=== PATIENT | female | born 1960 | race Caucasian/White ===

== ENCOUNTER 2019-01-17 17:13 | Emergency (ER) | payer BC ==
--- NOTE | 2019-01-17 17:53 | RAD REPORT ---
EXAM DESCRIPTION: CT - Ct Stroke Brain Wo Cont - 01/17/2019 5:43 pm CLINICAL HISTORY: Slurred speech COMPARISON: August 2018 MRI TECHNIQUE: Computed axial tomography of the head was obtained. All CT scans are performed using dose optimization technique as appropriate and may include automated exposure control or mA/KV adjustment according to patient size. FINDINGS: An intracranial bleed is not seen . The ventricles are normal in caliber. No extra-axial fluid collection is noted. Small low-density area within the left thalamus is unchanged compatible with an old lacunar infarctio n. Fluid within the sinuses/ mastoids is not seen. IMPRESSION: No acute intracranial abnormality is seen. If patient's symptoms persist MRI of the bra in would be recommended. Kedar of the emergency room was notified at 549 p.m. November 13, 2018
--- NOTE | 2019-01-17 17:56 | RAD REPORT ---
EXAM DESCRIPTION: Jelly Single View01/17/2019 5:40 pm CLINICAL HISTORY: Chest pain COMPARISON: 2013 FINDINGS: The lungs appear clear of acute infiltrate. The heart is normal size IMPRESSION: No acute abnormalities displayed
[2019-01-17 18:39] LABS: Absolute Lymphocytes (CBC) 2.7 K/uL (0.7-4.9); Absolute Monocytes 0.6 K/uL (0.1-1.3); Absolute Neutrophil 4.7 K/uL (1.8-8.0); Basophils % 0.7 % (0-1.3); Hematocrit 40.5 % (36.0-45.0); Lymphocytes % 32.6 % (15.3-44.8); MPV 10.2 fL (7.6-11.3); Monocytes % 7.3 % (3.3-12.3); RBC Red Blood Cell Count 4.58 M/uL (3.86-4.86)
[2019-01-17 18:41] LABS: Protime INR 1.08
[2019-01-17 18:44] LABS: Potassium 4.7 mmol/L (3.5-5.1)
[2019-01-17 19:10] LABS: Platelet Estimate ADEQ
[2019-01-17 19:11] LABS: Blood Morphology Comment NOT SEEN (NOT SEEN); Urine White Blood Cell Casts OK
--- NOTE | 2019-01-17 20:13 | EDPHYS ---
Physician Documentation [facility] Name: Jaci Colorado Age: 58 yrs Sex: Female : 1960 Arrival Date: 01/17/2019 Time: 17:16 Bed 20 Private MD: ED Physician Rogerio Evans HPI: 01/17 17:36 This 58 yrs old Female presents to ER via EMS with complaints of Slurred pm1 Speech. 17:36 The patient presents to the emergency department with a speech or higher order brain pm1 function problem, expressive aphasia for 1.5 minutes that was witnessed by . Onset: The symptoms/episode began/occurred today, at 16:20. Context: occurred at home, occurred while the patient was talking to her son by face time. Associated signs and symptoms: Pertinent negatives: fever, headache, paresthesias, blurred vision, double vision, visual field changes, loss of vision, weakness. Severity of symptoms: in the emergency department the symptoms have resolved Pain is currently a 0 / 10. Patient's baseline: Neuro: alert and fully oriented, Motor: no deficits, Ambulation: walks without assistance, Speech: normal, The patient has a previous history of CVA, June 2018. Right sided residual numbness and tingling to right hand and right foot. Current symptoms: Currently, the patient is not experiencing any symptoms, the patient feels back to baseline. The patient has been recently seen by a physician: Sandeep and PCP for preoperative clearance for right knee surgery tomorrow. Patient was talking to her son on her phone by face time. Her was right next to her talking with their son also. He witnessed the patient had speech sounds that did not make any sense. Patient was aware this was occurring and could not make the right words. She felt that it lasted for 5 minutes but her who witnessed the whole event said it only lasted for 1.5 minutes before it resolved completely. Patient has a surgery tomorrow for her left knee replacement and has recently seen her hoisting engine operator and PCP. she has been cleared for surgery and has been holding her aspirin for the past 1 week. Historical: - Allergies: 17:20 No Known Allergies; bp - PMHx: 17:20 CVA; Diabetes - NIDDM; bp - Immunization history:: Adult Immunizations up to date. - Social history:: Smoking status: Patient/guardian denies using tobacco. - Ebola Screening: : No symptoms or risks identified at this time. ROS: 17:36 Constitutional: Negative for fever, chills, and weight loss, Eyes: Negative for injury, pm1 pain, redness, and discharge, ENT: Negative for injury, pain, and discharge, Neck: Negative for injury, pain, and swelling, Cardiovascular: Negative for chest pain, palpitations, and edema, Respiratory: Negative for shortness of breath, cough, wheezing, and pleuritic chest pain, Abdomen/GI: Negative for abdominal pain, nausea, vomiting, diarrhea, and constipation, Back: Negative for injury and pain, : Negative for injury, bleeding, discharge, and swelling, MS/Extremity: Negative for injury and deformity, Skin: Negative for injury, rash, and discoloration. 17:36 Neuro: Positive for expressive aphasia, Negative for altered mental status, dizziness, headache, seizure activity, new numbness and tingling from baseline. Exam: 17:36 Constitutional: This is a well developed, well nourished patient who is awake, alert, pm1 and in no acute distress. Head/Face: Normocephalic, atraumatic. Eyes: Pupils equal round and reactive to light, extra-ocular motions intact. Lids and lashes normal. Conjunctiva and sclera are non-icteric and not injected. Cornea within normal limits. Periorbital areas with no swelling, redness, or edema. ENT: Nares patent. No nasal discharge, no septal abnormalities noted. Tympanic membranes are normal and external auditory canals are clear. Oropharynx with no redness, swelling, or masses, exudates, or evidence of obstruction, uvula midline. Mucous membranes moist. Neck: Trachea midline, no thyromegaly or masses palpated, and no cervical lymphadenopathy. Supple, full range of motion without nuchal rigidity, or vertebral point tenderness. No Meningismus. Chest/axilla: Normal chest wall appearance and motion. Nontender with no deformity. No lesions are appreciated. Cardiovascular: Regular rate and rhythm with a normal S1 and S2. No gallops, murmurs, or rubs. Normal PMI, no JVD. No pulse deficits. Respiratory: Lungs have equal breath sounds bilaterally, clear to auscultation and percussion. No rales, rhonchi or wheezes noted. No increased work of breathing, no retractions or nasal flaring. Abdomen/GI: Soft, non-tender, with normal bowel sounds. No distension or tympany. No guarding or rebound. No evidence of tenderness throughout. Back: No spinal tenderness. No costovertebral tenderness. Full range of motion. Skin: Warm, dry with normal turgor. Normal color with no rashes, no lesions, and no evidence of cellulitis. MS/ Extremity: Pulses equal, no cyanosis. Neurovascular intact. Full, normal range of motion. 17:36 Neuro: Orientation: is normal, Mentation: is normal, Cranial nerves: CN II- XII are normal as tested, Cerebellar function: normal finger to nose testing, heel to harris testing is normal, Motor: moves all fours, Sensation: no obvious gross deficits, seizure activity, is not displayed by the patient. Vital Signs: 17:20 BP 167 / 82; Pulse 57; Resp 16; Temp 98; Pulse Ox 99% ; Weight 90.72 kg; Height 5 ft. 7 bp in. (170.18 cm); 18:06 BP 146 / 78; Pulse 58; Resp 14; Pulse Ox 99% ; bp 18:47 BP 135 / 68; Pulse 57; Resp 15; Temp 98(TE); Pulse Ox 97% on R/A; mh5 19:15 BP 133 / 68; Pulse 57; Resp 17 S; Temp 98.6(O); Pulse Ox 97% on R/A; ca1 20:00 BP 159 / 73; Pulse 56; Resp 17 S; Pulse Ox 98% on R/A; cc3 21:11 BP 130 / 43; Pulse 58; Resp 19 S; Pulse Ox 100% on R/A; cc3 22:10 BP 135 / 67; Pulse 59; Resp 17 S; Pulse Ox 100% on R/A; cc3 17:20 Body Mass Index 31.32 (90.72 kg, 170.18 cm) bp NIH Stroke Scale Scores: 17:36 NIHSS Score: 0 pm1 MDM: 17:25 Patient medically screened. pm1 17:48 ED course: Negative CT head per radiologist. pm1 19:33 Physician consultation: Dominick Larson MD No neurologist clinical education manager. Attempted multiple pm1 times to contact patient's neurologist, Dr. Sherman. No return callback. Consulted with ER attending, Neo, and recommended to transfer patient since neurology is not available and giving patient Aspirin and Plavix in ER. . 19:41 Counseling: I had a detailed discussion with the patient and/or guardian regarding: the pm1 need to transfer to another facility, Discussed ER attending recommendations with patient and family. She would like to try her neurologist if available. Will try and if he is not available or does not answer will transfer patient. Patient and family is fine with plan. 20:10 Counseling: I had a detailed discussion with the patient and/or guardian regarding: the pm1 historical points, exam findings, and any diagnostic results supporting the discharge/admit diagnosis, lab results, radiology results, the need to transfer to another facility, for higher level of care, [facility] does not immediately have the required specialist. 20:20 Data reviewed: vital signs. Data interpreted: Pulse oximetry: on room air is 97 %. pm1 Interpretation: normal. 20:20 Physician consultation: Neurologist Flavia was called at 20:15, was contacted at 20:18, pm1 regarding regarding transfer, patient's condition, and will see patient. 20:36 Physician consultation: Hospitalist Jose regarding regarding transfer, patient's pm1 condition, and will see patient would like patient to receive a dosage of her home medication statin in ER. 01/17 17:26 Order name: Basic Metabolic Panel pm1 01/17 17:26 Order name: CBC with Diff; Complete Time: 20:16 pm1 01/17 17:26 Order name: Protime (+inr); Complete Time: 18:46 pm1 01/17 17:26 Order name: Ptt, Activated; Complete Time: 18:46 pm1 01/17 17:27 Order name: Basic Metabolic Panel; Complete Time: 18:46 EDMS 01/17 19:13 Order name: CBC Smear Scan; Complete Time: 20:16 EDMS 01/17 17:26 Order name: Stroke CXR 1 View; Complete Time: 17:57 pm1 01/17 17:26 Order name: EKG; Complete Time: 17:27 pm1 01/17 17:39 Order name: Ct Stroke Brain Wo Cont; Complete Time: 17:57 EDMS 01/17 20:30 Order name: Glucose, Ancillary Testing; Complete Time: 20:34 EDMS 01/17 17:26 Order name: Accucheck; Complete Time: 18:07 pm1 01/17 17:26 Order name: Cardiac monitoring; Complete Time: 18:07 pm1 01/17 17:26 Order name: EKG - Nurse/Tech; Complete Time: 18:07 pm1 01/17 17:26 Order name: IV Saline Lock; Complete Time: 18:07 pm1 01/17 17:26 Order name: Labs collected and sent; Complete Time: 18:07 pm1 01/17 17:26 Order name: NPO; Complete Time: 17:30 pm1 01/17 17:26 Order name: O2 Per Protocol; Complete Time: 17:30 pm1 01/17 17:26 Order name: O2 Sat Monitoring; Complete Time: 17:30 pm1 01/17 17:26 Order name: Stroke Swallow Screen; Complete Time: 17:30 pm1 EC:54 Rate is 56 beats/min. Rhythm is regular, Sinus bradycardia with PACs. No Q waves. T pm1 waves are Normal. No ST changes noted. Clinical impression: Sinus bradycardia. Administered Medications: 20:00 Drug: Aspirin 325 mg Route: PO; cc3 20:10 Follow up: Response: No adverse reaction cc3 20:00 Drug: PlaVIX 75 mg Route: PO; cc3 20:05 Follow up: Response: No adverse reaction cc3 21:54 Drug: lovastatin 40 mg {Note: medication not in Pyxis so patient took her own home cc3 medication.} Route: PO; 21:55 Follow up: Response: No adverse reaction cc3 Point of Care Testing: Blood Glucose: 18:28 Blood Glucose: 94 mg/dL; mh5 Ranges: Critical Glucose Levels:Adult <50 mg/dl or >400 mg/dl <40 mg/dl or >180 mg/dl Disposition: 01/17/19 20:11 Transfer ordered to [facility]. Diagnosis is Transient cerebral ischemic attack, unspecified. - Reason for transfer: Higher level of care. - Accepting physician is [facility] Neurologist. - Condition is Stable. - Problem is new. - Symptoms are resolved. NIH Stroke Scale - NIH Stroke Score Date: 01/17/2019 Time: 17:36 Total Score = 0 1a. Level of Consciousness (LOC) - 0(Alert) 1b. Level of Consciousness (LOC) (Year \T\ Age) - 0(Both) 1c. LOC Commands (Open \T\ Closes Eyes/Application Support Intern) - 0(Both) 2. Best Gaze (Lateral Gaze Paresis) - 0(Normal) 3. Visual Field Loss - 0(No visual loss) 4. Facial Palsy - 0(Normal) 5a. Left Arm: Motor (10-second hold) - 0(No drift) 5b. Right Arm: Motor (10-second hold) - 0(No drift) 6a. Left Leg: Motor (5-second hold - always test supine) - 0(No drift) 6b. Right Leg: Motor (5-second hold - always test supine) - 0(No drift) 7. Limb Ataxia (finger/nose \T\ heel/harris - test with eyes open) - 0(Absent) 8. Sensory Loss (pinprick arms/legs/face) - 0(Normal) 9. Best Language: Aphasia (description/naming/reading) - 0(No aphasia) 10. Dysarthria (speech clarity - read or repeat words) - 0(Normal) 11. Extinction and Inattention (visual/tactile/auditory/spatial/personal) - 0(No abnormality) Initials: pm1 Addendum: 01/19/2019 02:07 Co-signature as Attending Physician, Rogerio Evans MD. Signatures: Dispatcher [employer] [facility] Brady Steel, PINKING MACHINE OPERATOR PINKING MACHINE OPERATOR pm1 Rogerio Evans MD MD Don Caballero, RN RN Anne Weiss cc3 Corrections: (The following items were deleted from the chart) 01/17 17:38 17:27 CT-STROKE BRAIN W/O CONTRAST+CT.RAD.BRZ ordered. [facility] 22:20 20:11 01/17/2019 20:11 Transfer ordered to [facility]. cc3 Diagnosis is Transient cerebral ischemic attack, unspecified. Reason for transfer: Higher level of care. Accepting physician is [facility] Neurologist. Condition is Stable. Problem is new. Symptoms are resolved. pm1
--- NOTE | 2019-01-17 20:13 | ER ---
Nurse's Notes [facility] Name: Jaci Colorado Age: 58 yrs Sex: Female : 1960 Arrival Date: 01/17/2019 Time: 17:16 Bed 20 Private MD: Diagnosis: Transient cerebral ischemic attack, unspecified Presentation: 01/17 17:18 Presenting complaint: EMS states: 5 MINUTE EPISODE OF SLURRED SPEECH AT 1620. bp Transition of care: patient was not received from another setting of care. Onset of symptoms was January 17, 2019 at 16:20. Risk Assessment: Do you want to hurt yourself or someone else? Patient reports no desire to harm self or others. Initial Sepsis Screen: Does the patient meet any 2 criteria? No. Patient's initial sepsis screen is negative. Does the patient have a suspected source of infection? No. Patient's initial sepsis screen is negative. Care prior to arrival: IV initiated. 20 GA, in the right antecubital area, Glucose check: 97. 17:18 Method Of Arrival: EMS: [facility] bp 17:18 Acuity: MARICARMEN 4 bp 17:30 Acuity: MARICARMEN 2 iw Triage Assessment: 17:20 General: Appears in no apparent distress. comfortable, obese, Behavior is cooperative, bp appropriate for age, anxious. Pain: Denies pain. EENT: No deficits noted. Neuro: Level of Consciousness is awake, alert, obeys commands, Oriented to Appropriate for age Director Of Strategic Sourcing are equal bilaterally Moves all extremities. Full function Speech is normal, Facial symmetry appears normal. Cardiovascular: No deficits noted. Respiratory: Airway is patent Respiratory effort is even, unlabored, Respiratory pattern is regular, symmetrical. GI: No signs and/or symptoms were reported involving the gastrointestinal system. : No signs and/or symptoms were reported regarding the genitourinary system. Derm: No deficits noted. Musculoskeletal: Circulation, motion, and sensation intact. Range of motion: intact in all extremities. Historical: - Allergies: 17:20 No Known Allergies; bp - PMHx: 17:20 CVA; Diabetes - NIDDM; bp - Immunization history:: Adult Immunizations up to date. - Social history:: Smoking status: Patient/guardian denies using tobacco. - Ebola Screening: : No symptoms or risks identified at this time. Screenin:23 Abuse screen: Denies threats or abuse. Denies injuries from another. Nutritional bp screening: No deficits noted. Tuberculosis screening: No symptoms or risk factors identified. Fall Risk None identified. Assessment: 19:15 Reassessment: Patient appears in no apparent distress at this time. Patient and/or cc3 family updated on plan of care and expected duration. Pain level reassessed. Patient is alert, oriented x 3, equal unlabored respirations, skin warm/dry/pink. Received this female patient from morning shift RN Don as a case of slurred speech, currently patient is not having slurred speech nor any stroke symptoms; with IV cannula gauge 20 at the left ACV saline locked. Regarding the ordered Aspirin 325 mg oral, IVY Abreu said he'll confirm first with the patient's doctor if still to be given because patient is scheduled for knee replacement surgery tomorrow and she said she was told to be off Aspirin for a week. Patient denies pain at this time. General: Appears in no apparent distress. comfortable, Behavior is calm, cooperative, appropriate for age. Pain: Denies pain. Neuro: Level of Consciousness is awake, alert, obeys commands, Oriented to person, place, time, situation, Appropriate for age Director Of Strategic Sourcing are equal bilaterally Moves all extremities. Speech is normal, Facial symmetry appears normal, Pupils are PERRLA, Intact. Cardiovascular: Denies chest pain, Patient's skin is warm and dry. Respiratory: Airway is patent Respiratory effort is even, unlabored, Respiratory pattern is regular, symmetrical. GI: Abdomen is round non-distended. : No signs and/or symptoms were reported regarding the genitourinary system. EENT: No signs and/or symptoms were reported regarding the EENT system. Derm: Skin is intact, is healthy with good turgor, Skin is pink, warm \T\ dry. normal. Musculoskeletal: Circulation, motion, and sensation intact. Range of motion: intact in all extremities. 20:00 Reassessment: Patient appears in no apparent distress at this time. Patient and/or cc3 family updated on plan of care and expected duration. Pain level reassessed. Patient is alert, oriented x 3, equal unlabored respirations, skin warm/dry/pink. IVY Abreu said the Aspirin and Plavix can be given. 21:45 Reassessment: Patient appears in no apparent distress at this time. Patient and/or cc3 family updated on plan of care and expected duration. Pain level reassessed. Patient is alert, oriented x 3, equal unlabored respirations, skin warm/dry/pink. Patient for transfer to [facility], called for report but was told to call back after 15 minutes. 22:00 Reassessment: Patient appears in no apparent distress at this time. Patient and/or cc3 family updated on plan of care and expected duration. Pain level reassessed. Patient is alert, oriented x 3, equal unlabored respirations, skin warm/dry/pink. Called again [facility] but was told by the pole peeling machine operator helper Marifer that the nurse who will receive is still with another patient and that they will call me once they're ready to receive. Charge nurse Joan informed. 22:15 Reassessment: Report called and handed over to SHELL Rueda for continuity of care. cc3 Transfer form completed, awaiting EMS. 22:20 Reassessment: Patient appears in no apparent distress at this time. Patient and/or cc3 family updated on plan of care and expected duration. Pain level reassessed. Patient is alert, oriented x 3, equal unlabored respirations, skin warm/dry/pink. [facility] came for patient transport. Patient left ER for transfer to [facility] vitally stable by EMS stretcher. Patient denies pain at this time. Patient states feeling better. Patient states symptoms have improved. Vital Signs: 17:20 BP 167 / 82; Pulse 57; Resp 16; Temp 98; Pulse Ox 99% ; Weight 90.72 kg; Height 5 ft. 7 bp in. (170.18 cm); 18:06 BP 146 / 78; Pulse 58; Resp 14; Pulse Ox 99% ; bp 18:47 BP 135 / 68; Pulse 57; Resp 15; Temp 98(TE); Pulse Ox 97% on R/A; mh5 19:15 BP 133 / 68; Pulse 57; Resp 17 S; Temp 98.6(O); Pulse Ox 97% on R/A; ca1 20:00 BP 159 / 73; Pulse 56; Resp 17 S; Pulse Ox 98% on R/A; cc3 21:11 BP 130 / 43; Pulse 58; Resp 19 S; Pulse Ox 100% on R/A; cc3 22:10 BP 135 / 67; Pulse 59; Resp 17 S; Pulse Ox 100% on R/A; cc3 17:20 Body Mass Index 31.32 (90.72 kg, 170.18 cm) bp NIH Stroke Scale Scores: 17:36 NIHSS Score: 0 pm1 ED Course: 17:16 Patient arrived in ED. bp 17:17 Brady Steel, IVY is PHCP. pm1 17:17 Rogerio Evans MD is Attending Physician. pm1 17:19 Triage completed. bp 17:20 Arm band placed on. bp 17:22 Maintain EMS IV. Dressing intact. Good blood return noted. Site clean \T\ dry. Gauge \T\ bp site: 20 GAUGE R AC. 17:23 Patient has correct armband on for positive identification. Bed in low position. Call bp light in reach. Side rails up X2. Adult w/ patient. 17:27 Don Caballero, RN is Primary Nurse. bp 17:37 Stroke CXR 1 View In Process Unspecified. EDMS 17:44 Ct Stroke Brain Wo Cont In Process Unspecified. EDMS 17:45 CT completed. Patient tolerated procedure well. Patient moved back from CT. kw1 18:27 Initial lab(s) drawn, by ia, sent to lab. Inserted saline lock: 20 gauge in left mh5 antecubital area, using aseptic technique. Blood collected. IV discontinued, Pressure dressing applied. 18:29 Inserted saline lock: 20 gauge in left antecubital area, using aseptic technique. Blood mh5 collected. 18:29 Basic Metabolic Panel Sent. mh5 18:29 CBC with Diff Sent. mh5 18:29 Protime (+inr) Sent. mh5 18:30 Ptt, Activated Sent. mh5 18:43 EKG done, by ED staff, reviewed by Brady Steel LACING OPERATOR. mh5 22:20 No provider procedures requiring assistance completed. Patient transferred, IV remains cc3 in place. Administered Medications: 20:00 Drug: Aspirin 325 mg Route: PO; cc3 20:10 Follow up: Response: No adverse reaction cc3 20:00 Drug: PlaVIX 75 mg Route: PO; cc3 20:05 Follow up: Response: No adverse reaction cc3 21:54 Drug: lovastatin 40 mg {Note: medication not in Pyxis so patient took her own home cc3 medication.} Route: PO; 21:55 Follow up: Response: No adverse reaction cc3 Point of Care Testing: Blood Glucose: 18:28 Blood Glucose: 94 mg/dL; mh5 Ranges: Outcome: 20:11 ER care complete, transfer ordered by . pm1 22:20 Patient left the ED. cc3 22:20 Transferred by ground EMS to [facility], Transfer form completed. cc3 22:20 Condition: stable 22:20 Instructed on the need for transfer, Demonstrated understanding of instructions. NIH Stroke Scale - NIH Stroke Score Date: 01/17/2019 Time: 17:36 Total Score = 0 1a. Level of Consciousness (LOC) - 0(Alert) 1b. Level of Consciousness (LOC) (Year \T\ Age) - 0(Both) 1c. LOC Commands (Open \T\ Closes Eyes/Marketing Database Analyst) - 0(Both) 2. Best Gaze (Lateral Gaze Paresis) - 0(Normal) 3. Visual Field Loss - 0(No visual loss) 4. Facial Palsy - 0(Normal) 5a. Left Arm: Motor (10-second hold) - 0(No drift) 5b. Right Arm: Motor (10-second hold) - 0(No drift) 6a. Left Leg: Motor (5-second hold - always test supine) - 0(No drift) 6b. Right Leg: Motor (5-second hold - always test supine) - 0(No drift) 7. Limb Ataxia (finger/nose \T\ heel/harris - test with eyes open) - 0(Absent) 8. Sensory Loss (pinprick arms/legs/face) - 0(Normal) 9. Best Language: Aphasia (description/naming/reading) - 0(No aphasia) 10. Dysarthria (speech clarity - read or repeat words) - 0(Normal) 11. Extinction and Inattention (visual/tactile/auditory/spatial/personal) - 0(No abnormality) Initials: pm1 Signatures: Dispatcher [employer] Brenda Ren RN RN iw Marinas, Patrick, NP LACING OPERATOR pm1 Renea Jennings 5 Don Caballero RN RN bp Wilhelm, Kimberly kw1 Anne Ulloa cc3 Aida Burgess RN RN ca1 Corrections: (The following items were deleted from the chart) 17:38 17:[address]-STROKE BRAIN W/O CONTRAST+CT.RAD.BRZ. EDMS EDMS 01/18 04:15 01/17 21:45 Reassessment: Patient for transfer to [facility], called for cc3 report but was told to call back after 15 minutes. cc3
[2019-01-17] MEDS ORDERED: ASPIRIN EC 325 MG TABLET PO ONE (20:15)
[2019-01-17] MEDS ORDERED: CLOPIDOGREL 75 MG TABLET ONE (20:15)
[2019-01-17 22:42] VITALS: TEMP 98.6
[2019-01-17 22:44] VITALS: BP 130/43; O2SAT 100
--- NOTE | 2019-01-18 09:09 | EKG ---
Test Date: 2019-01-17 Test Time: 17:52:45 Rehabilitator: EUSEBIA MEASUREMENT RESULTS: Intervals: Rate: 56 NH: 128 QRSD: 78 QT: 416 QTc: 401 [place]: P: 55 NH: 128 QRS: 35 T: 53 INTERPRETIVE STATEMENTS: Sinus bradycardia with premature atrial complexes Otherwise normal ECG Compared to ECG 02/13/2013 20:33:53 Atrial premature complex(es) now present Sinus rhythm no longer present Electronically Signed On 01-18-19 09:08:28 CDT by Brown Hopkins
== END 2019-01-17 22:20 | disposition short-term general hospital (02) ==
LOC: ER 17:13
DX: G45.9 Transient cerebral ischemic attack, unspecified (principal); Z86.73 Personal history of transient ischemic attack (TIA), and cerebral infarction without residual deficits
CPT/HCPCS: 36415; 70450; 71045; 80048; 82962; 85025; 85610; 85730; 93005; 99285

== ENCOUNTER 2019-04-28 08:14 | Emergency (ER) | payer BC ==
[2019-04-28] MEDS ORDERED: ONDANSETRON 4 MG/2 ML VIAL ONE (08:20)
[2019-04-28] MEDS ORDERED: MORPHINE 2 MG/ML SYR ONE ×2 (08:20→08:52)
--- NOTE | 2019-04-28 08:31 | RAD REPORT ---
EXAM DESCRIPTION: RAD - Chest Single View - 04/28/2019 8:24 am CLINICAL HISTORY: SOB Chest pain. COMPARISON: Chest Single View dated 01/17/2019; CHEST PA AND LAT 2 VIEW dated 06/22/2014; CHEST SINGL E VIEW dated 02/13/2013; CHEST SINGLE VIEW dated 05/10/2009 FINDINGS: Portable technique limits examination quality. The lungs are grossly clear. The heart is normal in size. No displaced fractures. IMPRESSION: No acute intrathoracic process suspected.
[2019-04-28 08:49] LABS: Absolute Lymphocytes (CBC) 1.8 K/uL (0.7-4.9); Basophils % 0.5 % (0-1.3); Lymphocytes % 23.6 % (15.3-44.8); MPV 9.3 fL (7.6-11.3); RBC Red Blood Cell Count 3.64 M/uL (3.86-4.86)
[2019-04-28 08:51] LABS: Protime INR 1.13
[2019-04-28 09:12] LABS: ALT/SGPT 25 U/L (12-78); AST/SGOT 25 U/L (15-37); Albumin 3.3 g/dL (3.4-5.0); Alkaline Phosphatase 79 U/L (45-117); BUN Blood Urea Nitrogen 18 mg/dL (7-18); Bicarbonate 26 mmol/L (21-32); Bilirubin Direct 0.4 mg/dL (0-0.2); Bilirubin Total 1.3 mg/dL (0.2-1.0); Glucose Level 200 mg/dL (74-106); Lipase 139 U/L (73-393); Magnesium 1.6 mg/dL (1.8-2.4); NT PRO-BNP 426 pg/mL (<125); Potassium 3.4 mmol/L (3.5-5.1); Protein, Total 7.1 g/dL (6.4-8.2); Sodium Level 138 mmol/L (136-145); Troponin (Emerg Dept Use Only) < 0.02 ng/mL (0.0-0.045)
--- NOTE | 2019-04-28 09:21 | EKG ---
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
--- NOTE | 2019-04-28 10:08 | RAD REPORT ---
EXAM DESCRIPTION: CTAbdomen Pelvis W Contrast - 04/28/2019 9:47 am CLINICAL HISTORY: Abdominal pain. lower abdomen pain COMPARISON: CT ABD PELVIS W CONTRAST dated 02/13/2013; CT ABD PELVIS W CONTRAST dated 01/20/2008 TECHNIQUE: Biphasic CT imaging of the abdomen and pelvis was performed with 100 ml non-ionic IV cont rast. All CT scans are performed using dose optimization technique as appropriate and may include automated exposure control or mA/KV adjustment according to patient size. FINDINGS: The lung bases are clear.Cholecystectomy. The liver, spleen, pancreas, adrenal glands and kidneys are within normal limits. Bilateral renal cys ts are present. No bowel obstruction, free air, free fluid or abscess. Sigmoid diverticulosis coli is present without diverticulitis. The appendix is not identified as a discrete structure, however, no secondary findin gs of appendicitis are identified. No evidence of significant lymphadenopathy. Lumbar orthopedic hardware is in place. IMPRESSION: No acute intra-abdominal or pelvic finding. Sigmoid diverticulosis coli without diverticulitis.
[2019-04-28 10:47] LABS: Urine Blood NEGATIVE (NEG); Urine Glucose 2+ (NEG); Urine Protein NEGATIVE (NEG); Urine Specific Gravity 1.015 (1.005-1.030); Urine pH 8.5 (5.0-7.0)
[2019-04-28 10:53] LABS: Urine Bacteria <20 /HPF (<20); Urine RBC <5 /HPF (NONE SEEN)
[2019-04-28 10:54] LABS: Urine Culture Reflex Order REFLEXED
[2019-04-28] MEDS ORDERED: PHENAZOPYRIDINE 100MG TAB PO ONE (11:10)
[2019-04-28] MEDS ORDERED: LORazepam 2 MG/ML VIAL ONE (11:10)
[2019-04-28] MEDS ORDERED: CEFTRIAXONE/SWI 1gm 1 GM/10 ML SYR ONE (11:11)
[2019-04-28 11:41] LABS: Blood Morphology Comment NOT SEEN (NOT SEEN); Platelet Estimate ADEQ
--- NOTE | 2019-04-28 11:49 | EDPHYS ---
Physician Documentation [facility] Name: Jaci Colorado Age: 58 yrs Sex: Female : 1960 Arrival Date: 04/28/2019 Time: 08:10 Bed 7 Private MD: ED Physician Dexter Stephen HPI: 04/28 08:20 This 58 yrs old Female presents to ER via EMS with complaints of Abdominal cp Pain. 08:20 The patient presents with abdominal pain in the lower abdomen. cp 08:20 Onset: The symptoms/episode began/occurred yesterday. cp 08:20 The symptoms do not radiate. Associated signs and symptoms: Pertinent positives: cp dysuria, shortness of breath, Pertinent negatives: nausea and vomiting, blood in stools, chest pain, constipation, diarrhea, fever. The symptoms are described as waxing/waning. Modifying factors: the symptoms are aggravated by movement. Historical: - Allergies: 08:15 No Known Allergies; aa5 - Home Meds: 09:20 aspirin 81 mg Oral chew 1 tab twice a day [Active]; atenolol 100 mg Oral tab 1 tab once aa5 daily [Active]; atorvastatin 40 mg oral tab 1 tab once daily [Active]; escitalopram oxalate 20 mg oral tab [Active]; esomeprazole magnesium 40 mg oral cpDR 1 cap once daily [Active]; gabapentin 300 mg oral cap at bedtime [Active]; hydrocodone-acetaminophen 10-325 mg Oral tab every 6 hours for Pain [Active]; losartan-hydrochlorothiazide 100-25 mg oral tab once daily [Active]; meloxicam 15 mg oral tab 1 tab once daily [Active]; metformin 1,000 mg Oral tab 1 tab 2 times per day [Active]; methocarbamol 500 mg Oral tab every 6 hours as needed [Active]; mirtazapine 15 mg Oral tab 1 tab once daily [Active]; tramadol 50 mg Oral tab 1 tab every 6 hours [Active]; buspirone 7.5 mg Oral tab for Generalized Anxiety Disorder [Active]; - PMHx: 08:15 Hypertension; Diabetes; TIA; Anxiety; aa5 - Immunization history:: Adult Immunizations unknown. - Social history:: Smoking status: Patient/guardian denies using tobacco. - Ebola Screening: : No symptoms or risks identified at this time. ROS: 08:45 Eyes: Negative for injury, pain, redness, and discharge. cp 08:45 Constitutional: Positive for poor PO intake, Negative for body aches, chills, fever, poor PO intake. 08:45 ENT: Negative for drainage from ear(s), ear pain, sore throat, difficulty swallowing, difficulty handling secretions. 08:45 Cardiovascular: Negative for palpitations. 08:45 Respiratory: Negative for cough, shortness of breath, wheezing. 08:45 Abdomen/GI: Positive for abdominal pain, nausea, of the , Negative for diarrhea, constipation, anorexia, black/tarry stool, rectal bleeding. 08:45 Back: Negative for injury or acute deformity. 08:45 All other systems are negative. Exam: 08:35 ECG was reviewed by the Attending Physician. cp 08:40 Constitutional: The patient appears in no acute distress, alert, awake, non-toxic, well cp developed, well nourished, uncomfortable. 08:40 Head/Face: Normocephalic, atraumatic. cp 08:40 Eyes: Periorbital structures: appear normal, Pupils: equal, round, and reactive to light and accomodation, Extraocular movements: intact throughout, Conjunctiva: normal, no exudate, no injection, Sclera: no appreciated abnormality, Lids and lashes: appear normal, bilaterally. 08:40 ENT: External ear(s): are unremarkable, Nose: is normal, Mouth: Lips: moist, Oral mucosa: pink and intact, Posterior pharynx: is normal, airway is patent, no erythema, no exudate. 08:40 Neck: ROM/movement: is normal, is supple, without pain, no range of motions limitations, no nuchal rigidity. 08:40 Chest/axilla: Inspection: Palpation: is normal, no crepitus, no tenderness. 08:40 Cardiovascular: Rate: normal, Rhythm: regular, Edema: 1+ edema to level of right lower leg, JVD: is not appreciated. 08:40 Respiratory: the patient does not display signs of respiratory distress, Respirations: cp normal, no use of accessory muscles, no retractions, no splinting, no tachypnea, labored breathing, is not present, Breath sounds: are clear throughout, no decreased breath sounds, no stridor, no wheezing. 08:40 Abdomen/GI: Inspection: abdomen appears normal, Bowel sounds: active, Palpation: soft, cp in all quadrants, mild abdominal tenderness, in the suprapubic area, right lower quadrant and left lower quadrant, rebound tenderness, is not appreciated, involuntary guarding, is not appreciated. 08:40 Back: pain, is absent, ROM is normal. 08:40 Skin: no rash present. 08:40 Neuro: Orientation: to person, place \T\ time. Mentation: Motor: moves all fours, strength is normal, Sensation: no obvious gross deficits. Vital Signs: 08:11 BP 133 / 53; Pulse 68; Resp 16 S; Temp 98.6(O); Pulse Ox 100% on R/A; Pain 10/10; aa5 09:30 BP 140 / 56; Pulse 66; Resp 18 S; Pulse Ox 100% on R/A; aa5 10:00 BP 135 / 46; Pulse 60; Resp 16 S; Pulse Ox 99% on R/A; Pain 6/10; aa5 10:24 BP 139 / 71; Pulse 64; Resp 16; Pulse Ox 95% ; sv 11:45 BP 124 / 73; Pulse 60; Resp 16 S; Pulse Ox 97% on R/A; aa5 MDM: 08:15 Patient medically screened. cp 11:44 ED course: received verbal report from [facility] that DVT study negative for RLE. cp 11:45 Data reviewed: vital signs, nurses notes, lab test result(s), radiologic studies, CT cp scan, ultrasound. 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 Response to treatment: the patient's symptoms have markedly improved after treatment, and as a result, I will discharge patient. Special discussion: Based on the patient's Hx, exam, and Dx evaluation, there is no indication for emergent surgery or inpatient Tx. It is understood by the patient/guardian that if the Sx's persist or worsen they need to return immediately for re-evaluation. 04/28 08:14 Order name: Basic Metabolic Panel; Complete Time: 09:29 cp 04/28 10:15 Interpretation: Normal except: K 3.4; GLUC 200; GFR 54. cp 04/28 08:14 Order name: CBC with Diff cp 04/28 10:15 Interpretation: Normal except: RBC 3.64; HGB 11.2; HCT 32.0. cp 04/28 08:14 Order name: LFT's; Complete Time: 09:29 cp 04/28 08:14 Order name: Magnesium; Complete Time: 09: cp 04/28 08:14 Order name: NT PRO-BNP; Complete Time: 09:29 cp 04/28 08:14 Order name: PT-INR; Complete Time: 09:29 cp 04/28 08:14 Order name: Troponin (emerg Dept Use Only); Complete Time: 09: cp 04/28 08:14 Order name: XRAY Chest (1 view); Complete Time: 09:29 cp 04/28 08:14 Order name: Lipase; Complete Time: 09: cp 04/28 09:30 Order name: Urine Microscopic Only; Complete Time: 10:59 cp 04/28 09:30 Order name: CT Abd/Pelvis - IV Contrast Only; Complete Time: 10:14 cp 04/28 10:29 Order name: Urine Dipstick--Ancillary (enter results); Complete Time: 10:59 bd 04/28 10:56 Order name: Urine Culture EDWY 04/28 11:42 Order name: Manual Differential EDWY 04/28 08:14 Order name: EKG; Complete Time: 08:16 cp 04/28 08:14 Order name: Cardiac monitoring; Complete Time: 08:16 cp 04/28 08:14 Order name: EKG - Nurse/Tech; Complete Time: 08:28 cp 04/28 08:14 Order name: IV Saline Lock; Complete Time: 08:16 cp 04/28 08:14 Order name: Labs collected and sent; Complete Time: 08:28 cp 04/28 08:14 Order name: O2 Per Protocol; Complete Time: 08:15 cp 04/28 08:14 Order name: O2 Sat Monitoring; Complete Time: 08:15 cp 04/28 09:30 Order name: Urine Dipstick-Ancillary (obtain specimen); Complete Time: 10:02 cp 04/28 11:47 Order name: Extremity Venous Uni Ltd EDMS EC:35 Rate is 62 beats/min. Rhythm is regular. AR interval is normal. QRS interval is normal. cp QT interval is normal. T waves are Inverted in leads III, aVR. Interpreted by me. Reviewed by me. Administered Medications: 08:18 CANCELLED (Physician Discretion): morphine 2 mg Sub-Q once; RASS on ADMIN: Combtv4, aa5 Very Agttd3, Agttd2, Rstlss1, AlertClm0, Drwsy-1, Lt Sdtn-2, Mod Sdtn-3, Dp Sdtn-4, UnArsble-5 08:24 Drug: Zofran 4 mg Route: IVP; Site: right antecubital; aa5 08:30 Follow up: Response: No adverse reaction aa5 08:26 Drug: morphine 2 mg Route: IVP; Site: right antecubital; aa5 08:30 Follow up: Response: No adverse reaction aa5 08:54 Drug: morphine 2 mg Route: IVP; Site: right antecubital; aa5 09:00 Follow up: Response: No adverse reaction aa5 11:10 Drug: Ativan 0.5 mg Route: IVP; Site: right antecubital; aa5 11:15 Follow up: Response: No adverse reaction aa5 11:10 Drug: Pyridium 200 mg Route: PO; aa5 12:00 Follow up: Response: No adverse reaction aa5 11:11 Drug: Rocephin 1 grams Route: IV; Rate: calculated rate; Site: right antecubital; aa5 11:15 Follow up: Response: No adverse reaction aa5 Disposition: 15:44 Co-signature as Attending Physician, Dexter Stephen MD I agree with the assessment and kdr plan of care. Disposition: 04/28/19 11:47 Discharged to Home. Impression: Lower abdominal pain, unspecified, Dysuria. - Condition is Stable. - Discharge Instructions: Abdominal Pain, Adult, Dysuria. - Prescriptions for Bactrim DS 800- 160 mg Oral Tablet - take 1 tablet by ORAL route every 12 hours for 7 days; 14 tablet. Pyridium 200 mg Oral Tablet - take 1 tablet by ORAL route every 8 hours for 3 days; 6 tablet. Ativan 1 mg Oral Tablet - take 1 tablet by ORAL route every 8 hours As needed; 10 tablet. - Medication Reconciliation Form, Thank You Letter, Antibiotic Education, Prescription Opioid Use form. - Follow up: Private Physician; When: 1 - 2 days; Reason: Recheck today's complaints. - Problem is new. - Symptoms have improved. Signatures: Dispatcher [employer] EDWY Dexter Stephen MD MD [facility] Carmen Fulton RN RN aa5 Dominick Gutierrez PA PA cp Corrections: (The following items were deleted from the chart) 08:18 08:14 morphine 2 mg Sub-Q once; RASS on ADMIN: Combtv4, Very Agttd3, Agttd2, Rstlss1, aa5 AlertClm0, Drwsy-1, Lt Sdtn-2, Mod Sdtn-3, Dp Sdtn-4, UnArsble-5 ordered. cp 08:18 08:18 morphine 2 mg Sub-Q once; RASS on ADMIN: Combtv4, Very Agttd3, Agttd2, Rstlss1, aa5 AlertClm0, Drwsy-1, Lt Sdtn-2, Mod Sdtn-3, Dp Sdtn-4, UnArsble-5 ordered. aa5 10:02 09:30 Urine Test ordered. cp iw 11:46 11:04 Extrem Venous W Compression Bossman+[email or web address] ordered. [facility] EDWY 12:11 11:47 04/28/2019 11:47 Discharged to Home. Impression: Lower abdominal pain, aa5 unspecified; Dysuria. Condition is Stable. Forms are Medication Reconciliation Form, Thank You Letter, Antibiotic Education, Prescription Opioid Use. Follow up: Private Physician; When: 1 - 2 days; Reason: Recheck today's complaints. Problem is new. Symptoms have improved. cp
--- NOTE | 2019-04-28 11:49 | ER ---
Nurse's Notes [facility] Name: Jaci Colorado Age: 58 yrs Sex: Female : 1960 Arrival Date: 04/28/2019 Time: 08:10 Bed 7 Private MD: Diagnosis: Lower abdominal pain, unspecified;Dysuria Presentation: 04/28 08:11 Presenting complaint: Patient states: lower abdominal pain that began yesterday. Pt aa5 reports having right knee replacement on April 22 and is currently taking aspirin daily. Pt denies nausea/vomiting/diarrhea. Pt states "I took an anxiety pill this morning and a hydrocodone last night". Transition of care: patient was not received from another setting of care. Onset of symptoms was April 2019. Risk Assessment: Do you want to hurt yourself or someone else? Patient reports no desire to harm self or others. Initial Sepsis Screen: Does the patient meet any 2 criteria? No. Patient's initial sepsis screen is negative. Does the patient have a suspected source of infection? No. Patient's initial sepsis screen is negative. Care prior to arrival: IV initiated. 18 GA, in the right antecubital area, Glucose check: 187. 08:11 Acuity: MARICARMEN 3 aa5 08:11 Method Of Arrival: EMS: [facility] aa5 Historical: - Allergies: 08:15 No Known Allergies; aa5 - Home Meds: 09:20 aspirin 81 mg Oral chew 1 tab twice a day [Active]; atenolol 100 mg Oral tab 1 tab once aa5 daily [Active]; atorvastatin 40 mg oral tab 1 tab once daily [Active]; escitalopram oxalate 20 mg oral tab [Active]; esomeprazole magnesium 40 mg oral cpDR 1 cap once daily [Active]; gabapentin 300 mg oral cap at bedtime [Active]; hydrocodone-acetaminophen 10-325 mg Oral tab every 6 hours for Pain [Active]; losartan-hydrochlorothiazide 100-25 mg oral tab once daily [Active]; meloxicam 15 mg oral tab 1 tab once daily [Active]; metformin 1,000 mg Oral tab 1 tab 2 times per day [Active]; methocarbamol 500 mg Oral tab every 6 hours as needed [Active]; mirtazapine 15 mg Oral tab 1 tab once daily [Active]; tramadol 50 mg Oral tab 1 tab every 6 hours [Active]; buspirone 7.5 mg Oral tab for Generalized Anxiety Disorder [Active]; - PMHx: 08:15 Hypertension; Diabetes; TIA; Anxiety; aa5 - Immunization history:: Adult Immunizations unknown. - Social history:: Smoking status: Patient/guardian denies using tobacco. - Ebola Screening: : No symptoms or risks identified at this time. Screenin:20 Abuse screen: Denies threats or abuse. Nutritional screening: No deficits noted. aa5 Tuberculosis screening: No symptoms or risk factors identified. Fall Risk Secondary diagnosis (15 points) TIA, IV access (20 points). Total Oseguera Fall Scale indicates Low Risk Score (25-44 pts). Fall prevention measures have been instituted. Side Rails Up X 2. Assessment: 08:11 General: Appears uncomfortable, Behavior is cooperative, anxious. Pain: Complains of aa5 pain in right lower quadrant and left lower quadrant Pain does not radiate. Pain currently is 10 out of 10 on a pain scale. Quality of pain is described as crampy, Pain began 1 day ago. Is continuous. Neuro: Level of Consciousness is awake, alert, obeys commands, Oriented to person, place, time, situation. Cardiovascular: Heart tones S1 S2 present Rhythm is regular. Respiratory: Airway is patent Respiratory effort is even, unlabored, Respiratory pattern is regular, symmetrical, Breath sounds are clear bilaterally. GI: Abdomen is round non-distended, Bowel sounds present X 4 quads. Abd is soft and non tender X 4 quads. Reports lower abdominal pain, Patient currently denies diarrhea, nausea, vomiting. : Reports burning with urination. EENT: No signs and/or symptoms were reported regarding the EENT system. Derm: Skin is dry, Skin is pale, Skin temperature is cool. Musculoskeletal: Dressing noted to top of right knee. Large bruising that is dark purple noted to right thigh, right knee, and right lower leg. Swelling noted to right leg. Pt states "it has been bruised but it's more noticeable today". 08:13 Reassessment: Pt screaming "I am really anxious, somebody help me, somebody help me". aa5 PA at bedside. Pt now diaphoretic, pale, skin is cool. . 08:20 Reassessment: Pt cleaned of diaphoresis, pt appears calm at this time. Pt sitting up in aa5 bed. A\\T\\O x 4, equal unlabored respirations, call rodriguez remains within reach. . 08:52 Reassessment: Patient is alert, oriented x 3, equal unlabored respirations, skin aa5 warm/dry/pink. Pt appears calm but uncomfortable, when asked to rate her pain, pt states "I don't know, I just hurt" . 09:39 Reassessment: Patient is alert, oriented x 3, equal unlabored respirations, skin aa5 warm/dry/pink. Patient states feeling better. Pain: Pain currently is 6 out of 10 on a pain scale. 10:00 Reassessment: Patient is alert, oriented x 3, equal unlabored respirations, skin aa5 warm/dry/pink. Pt assisted with bedside commode, pt voided once, 200cc of urine. Urine specimen collected and urine micro sent to lab. Pt awaiting CT and urine results at this time. . 11:02 Reassessment: Patient is alert, oriented x 3, equal unlabored respirations, skin aa5 warm/dry/pink. Pt sitting up in bed. Pt appears anxious, pt c/o increased abd pain at this time. PA was notified. . 12:00 Reassessment: Patient is alert, oriented x 3, equal unlabored respirations, skin aa5 warm/dry/pink. PA at bedside . 12:08 Reassessment: Patient is alert, oriented x 3, equal unlabored respirations, skin aa5 warm/dry/pink. Patient states feeling better. Vital Signs: 08:11 BP 133 / 53; Pulse 68; Resp 16 S; Temp 98.6(O); Pulse Ox 100% on R/A; Pain 10/10; aa5 09:30 BP 140 / 56; Pulse 66; Resp 18 S; Pulse Ox 100% on R/A; aa5 10:00 BP 135 / 46; Pulse 60; Resp 16 S; Pulse Ox 99% on R/A; Pain 6/10; aa5 10:24 BP 139 / 71; Pulse 64; Resp 16; Pulse Ox 95% ; sv 11:45 BP 124 / 73; Pulse 60; Resp 16 S; Pulse Ox 97% on R/A; aa5 ED Course: 08:10 Patient arrived in ED. aa5 08:11 Arm band placed on. aa5 08:11 Patient has correct armband on for positive identification. Bed in low position. Call aa5 light in reach. Side rails up X2. director of transportation on. Pulse ox on. NIBP on. 08:13 Dominick Gutierrez PA is PHCP. cp 08:13 Dexter Stephen MD is Attending Physician. cp 08:13 Triage completed. aa5 08:18 Carmen Fulton, RN is Primary Nurse. aa5 08:23 Maintain EMS IV. Dressing intact. Good blood return noted. Site clean \\T\\ dry. Gauge \\T\\ aa 5 site: 18 G to R AC . 08:24 XRAY Chest (1 view) In Process Unspecified. EDMS 08:30 Initial lab(s) drawn, by me, sent to lab. jb1 08:30 EKG done, by armorer technician. reviewed by Dominick FRANZ. jb1 09:[address] via stretcher. aa5 09:51 CT Abd/Pelvis - IV Contrast Only In Process Unspecified. EDMS 10:09 No provider procedures requiring assistance completed. aa5 11:49 Extremity Venous Uni Ltd In Process Unspecified. EDMS 12:08 IV discontinued, intact, bleeding controlled, No redness/swelling at site. Pressure aa5 dressing applied. Administered Medications: 08:18 CANCELLED (Physician Discretion): morphine 2 mg Sub-Q once; RASS on ADMIN: Combtv4, aa5 Very Agttd3, Agttd2, Rstlss1, AlertClm0, Drwsy-1, Lt Sdtn-2, Mod Sdtn-3, Dp Sdtn-4, UnArsble-5 08:24 Drug: Zofran 4 mg Route: IVP; Site: right antecubital; aa5 08:30 Follow up: Response: No adverse reaction aa5 08:26 Drug: morphine 2 mg Route: IVP; Site: right antecubital; aa5 08:30 Follow up: Response: No adverse reaction aa5 08:54 Drug: morphine 2 mg Route: IVP; Site: right antecubital; aa5 09:00 Follow up: Response: No adverse reaction aa5 11:10 Drug: Ativan 0.5 mg Route: IVP; Site: right antecubital; aa5 11:15 Follow up: Response: No adverse reaction aa5 11:10 Drug: Pyridium 200 mg Route: PO; aa5 12:00 Follow up: Response: No adverse reaction aa5 11:11 Drug: Rocephin 1 grams Route: IV; Rate: calculated rate; Site: right antecubital; aa5 11:15 Follow up: Response: No adverse reaction aa5 Outcome: 11:47 Discharge ordered by MD. mendez 12:08 Discharged to home via wheelchair, with significant other. aa5 12:08 Condition: improved 12:08 Discharge instructions given to patient, significant other, Instructed on discharge instructions, follow up and referral plans. medication usage, Demonstrated understanding of instructions, follow-up care, medications, Prescriptions given X 3. 12:11 Patient left the ED. aa5 Signatures: Dispatcher [employer] EDAurelio Shah jbNneka Ballard, RN RN Carmen Sanchez RN RN aa5 Dominick Gutierrez PA PA cp Corrections: (The following items were deleted from the chart) 11:46 11:38 In radiology for Extrem Venous W Compression Bossman+[email or web address].[email or web address]. EDMS EDMS
[2019-04-28 12:31] VITALS: BP 124/73; O2SAT 97
--- NOTE | 2019-04-28 12:45 | RAD REPORT ---
EXAM DESCRIPTION: US - Extremity Venous Uni Ltd - 04/28/2019 11:45 am CLINICAL HISTORY: right leg swelling Leg swelling and edema. COMPARISON: No comparisons FINDINGS: Right lower extremity venous system was interrogated with Doppler technique. Normal flow, compressibility and augmentation was noted. There is no DVT present. IMPRESSION: No evidence of right lower extremity deep venous thrombosis.
== END 2019-04-28 12:11 | disposition home or self-care (01) ==
LOC: ER 08:14
DX: R30.0 Dysuria (principal); I10 Essential (primary) hypertension; E11.9 Type 2 diabetes mellitus without complications; F41.1 Generalized anxiety disorder; Z79.82 Long term (current) use of aspirin
CPT/HCPCS: 93005; 87088; 85025; 87086; 80048; 36415; 83735; 85610; 80076; 84484; 83690; 83880; 74177; 71045; 93971; Q9967; J2270 ×2; J0696; J2405; 81003; 81015